=== PATIENT | female | born 1960 | race Caucasian/White ===

== ENCOUNTER 2016-08-19 18:48 | Emergency (ER) | payer SELFPAY ==
[~2016-08-19] VITALS: Ht 167.6 cm; Wt 97.0 kg
[~2016-08-19 18:48] MED LIST: ALBU1AER INH; DIAZ10TA PO; SOMA350T PO
[2016-08-19 18:55] VITALS: BP 173/88; PULSE 101; RESP 18; TEMP 98.3; O2SAT 95
[2016-08-19] MEDS ORDERED: CYCLOBENZAPRINE HCL 10 MG TAB PO ONE (21:00)
[2016-08-19] MEDS ORDERED: ACETAMINOPHEN/HYDROcodone 325 MG/5 MG TAB PO ONE (21:00)
--- NOTE | 2016-08-19 21:13 | PD ---
HPI . Low back pain Chief Complaint: Back/ Neck Pain or Injury Time Seen by Provider: 20:58 Travel History International Travel<30 days: No Contact w/Intl Traveler<30days: No Traveled to known affect area: No History of Present Illness HPI Patient presents with low back pain. She states that she has a history of chronic low back issues. She states that someone spilled something sticking in the floor except ago and that she got on all fours to mop it up. She states that she felt a pop in her back. Since that time, she has had increased pain in her low back. Pain is exacerbated by moving. She denies any other as fever , difficulty passing her bowels or urine, leg pain or weakness. She states the pain has been unrelieved by ibuprofen and Tylenol. [id number]: Generalized low back SEVERITY: Severe DURATION: 2 weeks TIMING: Continuous CONTEXT: Started after cleaning the floor on all fours MODIFYING FACTORS: Exacerbated by movement ASSOCIATED SYMPTOMS: No associated symptoms PFSH Past Medical History Asthma: Yes Autoimmune Disease: No Blood Disorders: No Anxiety: Yes Depression: Yes Cancer: No Cardiovascular Problems: No Diabetes: No Diminished Hearing: No Endocrine: No Glaucoma: No Headaches: No Herniated Disk: Yes Musculoskeletal: Yes (CHRONIC BACK/NECK PAIN AND LEFT SHOULDER PAIN) Neurologic: No Psychiatric: No Respiratory: Yes (asthma) Immunizations Current: No Migraines: Yes Pneumonia: Yes Seizures: No Influenza Vaccination: No ?: Not Menopausal: Yes : 3 Para: 1 : 2 Past Surgical History AICD: No Arteriovenous Shunt: No Insulin Pump: No Joint Replacement: No Oral Surgery: Yes (WISDOM TEETH) Pacemaker: No Other Surgery: No Social History Alcohol Use: No Tobacco Use: Yes (05/20 PPD) Substance Use: No Allergies-Medications (Allergen,Severity, Reaction): Coded Allergies: Aspirin (Verified Allergy, Severe, SWELLING, 08/19/16) Penicillin (Verified Allergy, Severe, SWELLING, 08/19/16) Codeine (Verified Allergy, Unknown, 08/19/16) Talwin (Verified Allergy, Unknown, 08/19/16) Reported Meds & Prescriptions Reported Meds & Active Scripts Active No Active Prescriptions or Reported Medications Review of Systems Except as stated in HPI: all other systems reviewed are Neg General / Constitutional: No: Fever, Chills Gastrointestinal: No: Nausea, Vomiting Genitourinary: No: Incontinence Musculoskeletal: Positive: Pain Neurologic: No: Weakness, Paresthesia Physical Exam Narrative GENERAL: Awake and alert and in no acute distress. SKIN: Warm and dry. CARDIOVASCULAR: Regular rate and rhythm. RESPIRATORY: No accessory muscle use. MUSCULOSKELETAL: No obvious deformities. No edema. Diffuse tenderness to palpation of low back. No tenderness to percussion down the spine. Range of motion is a little bit limited. NEUROLOGICAL: Awake and alert. No obvious cranial nerve deficits. Motor grossly within normal limits. Normal speech. PSYCHIATRIC: Appropriate mood and affect; insight and judgment normal. Data Data Last Documented VS Vital Signs Date Time Temp Pulse Resp B/P Pulse Ox O2 Delivery O2 Flow Rate FiO2 08/19/16 18:55 98.3 101 18 173/88 95 Orders Spine, Lumbar - Ltd (Ap & Lat) (08/19/16 20:59) Acetamin-Hydrocod 325-5 Mg ([place] 5-325 (08/19/16 21:00) Cyclobenzaprine (Flexeril) (08/19/16 21:00) [facility] Medical Decision Making Medical Screen Exam Complete: Yes Emergency Medical Condition: Yes Differential Diagnosis Differential diagnosis includes but is not limited to muscular low back pain, DDD, spinal stenosis, epidural abscess, sciatica, kidney infection or stone. Narrative Course Patient presents complaining with low back pain. She has a history of chronic low back pain. I pulled her up on [employer]. It looks like she is prescribed Soma regularly. She is also prescribed Valium periodically as well as hydrocodone periodically. She last received a prescription of hydrocodone on 07/18 for 180 tablets. She does consistently get all of her medications from a single provider. Last Impressions Lumbar Spine X-Ray 08/19/[id number] Signed Impressions: Service Date/Time: Friday, August 19, 2016 21:17 - CONCLUSION: Chronic changes. K. Sly Nunez MD The x-rays were independently viewed by me. This patient has acute exacerbation of chronic low back pain. It looks like she is already prescribed Soma, Valium and hydrocodone. I will try Flexeril and prednisone. The only medication that the patient admitted to when the nurse did her medication reconciliation was albuterol. The Soma and Valium were removed from her medication list. Diagnosis Primary Impression: Low back pain Qualified Code: M54.5 - Chronic midline low back pain without sciatica Patient Instructions: Acute Low Back Pain (DC), General Instructions, Narcotic given in the ED Med/Other Pt SpecificInfo: Prescription(s) given Scripts Prednisone (48) 10 mg tab Dose Pack 10 Mg Dspk10 Mg PO DIRECTED #1 DSPK Ref 0 Prov:Amanda Ruiz MD 08/19/16 Cyclobenzaprine (Flexeril)10 Mg Tab10 Mg PO TID #30 TAB Ref 0 Prov:Amanda Ruiz MD 08/19/16 Disposition: 01 DISCHARGE HOME Condition: Stable Amanda Ruiz MD Aug 19, 2016 21:12
--- NOTE | 2016-08-19 21:40 | RADHPO ---
EXAM DATE/TIME: 08/19/2016 21:17 [place] COMPARISON: No previous studies available for comparison. INDICATIONS : Back pain. MEDICAL HISTORY : None. SURGICAL HISTORY : None. ENCOUNTER: Initial ACUITY: 2 weeks PAIN SCORE: 8/10 LOCATION: Lumbar FINDINGS: No appreciable compression deformities, spondylolisthesis, or spondylolysis is seen. Significant deg enerative changes are seen within the disc space and facets worse at L5-S1. Chronic atherosclerotic c alcifications are seen without any definite aneurysmal dilatations for technique. There is moderate a mount of stool throughout the colon. CONCLUSION: Chronic changes. Jamila Nunez MD on August 19, 2016 at 21:38 Board Certified Radiologist. This report was verified electronically.
[2016-08-19] MEDS ORDERED: PRED10PA2 PO (22:07)
[2016-08-19] MEDS ORDERED: CYCL1TAB29 PO (22:07)
[2016-08-19 22:33] VITALS: RESP 16
== END 2016-08-19 22:34 | disposition home or self-care (01) ==
LOC: PHED 18:48 → PHEFT 22:34
DX: M54.5 Low back pain (principal); J45.909 Unspecified asthma, uncomplicated; F41.9 Anxiety disorder, unspecified; F32.9 Major depressive disorder, single episode, unspecified; F17.200 Nicotine dependence, unspecified, uncomplicated
CPT/HCPCS: 72100; 99283

== ENCOUNTER 2017-07-26 13:20 | Emergency (ER) | payer SELFPAY ==
[~2017-07-26] VITALS: Ht 167.6 cm; Wt 110.6 kg
[~2017-07-26 13:20] MED LIST changes: -ALBU1AER INH; +CYCL10TA PO; -DIAZ10TA PO; +PRED10PA2 PO; -SOMA350T PO
[2017-07-26 13:27] VITALS: BP 217/100; PULSE 98; RESP 16; TEMP 98.1; O2SAT 95
[2017-07-26] MEDS ORDERED: AZIT250T3 PO (13:50)
[2017-07-26] MEDS ORDERED: HYDR-3516 PO (13:50)
[2017-07-26] MEDS ORDERED: DICL75TA PO (13:50)
[2017-07-26] MEDS ORDERED: PRED20 PO (13:50)
--- NOTE | 2017-07-26 13:54 | PD ---
HPI Chief Complaint: ENT Complaint Time Seen by Provider: 13:41 Travel History International Travel<30 days: No Contact w/Intl Traveler<30days: No Traveled to known affect area: No History of Present Illness HPI 57-year-old female that presents to the ED for evaluation of severe right ear pain since last night. Per patient the pain has become more significant today progresses. Per patient she's never had this before. No injury or trauma. Per patient she was coming from her ear. She states having some congestion. Allergies to different medications. Has been taking of dizziness with minimal relief. Pain per patient is 8 out of 10 and Motrin or Tylenol as not touching it. Has not seen anybody for this. No other medical issues. PFSH Past Medical History Asthma: Yes Autoimmune Disease: No Blood Disorders: No Anxiety: Yes Depression: Yes Cancer: No Cardiovascular Problems: No Diabetes: No Diminished Hearing: No Endocrine: No Glaucoma: No Headaches: No Herniated Disk: Yes Musculoskeletal: Yes (CHRONIC BACK/NECK PAIN AND LEFT SHOULDER PAIN) Neurologic: No Psychiatric: No Respiratory: Yes (asthma) Immunizations Current: No Migraines: Yes Pneumonia: Yes Seizures: No Influenza Vaccination: No ?: Not Menopausal: Yes : 3 Para: 1 : 2 Past Surgical History AICD: No Arteriovenous Shunt: No Insulin Pump: No Joint Replacement: No Oral Surgery: Yes (WISDOM TEETH) Pacemaker: No Other Surgery: No Social History Alcohol Use: No Tobacco Use: Yes (05/20 PPD) Substance Use: No Allergies-Medications (Allergen,Severity, Reaction): Coded Allergies: aspirin (Unverified Allergy, Severe, SWELLING, 07/26/17) penicillin G (Unverified Allergy, Severe, SWELLING, 07/26/17) codeine (Unverified Allergy, Unknown, 07/26/17) pentazocine (Unverified Allergy, Unknown, 07/26/17) Reported Meds & Prescriptions Reported Meds & Active Scripts Active Hydrocodone-Acetamin 5-325 mg (Hydrocodone/Acetaminophen) 5 Mg-325 Mg Tablet 1 Tab PO Q6HR PRN Azithromycin 250 Mg Tab 250 Mg PO DIRECTED Take 2 tabs (500 mg) on day 1 then 1 tab daily x [address]. [address] (Diclofenac Sodium) 75 Mg Tabdr 75 Mg PO BID PRN Prednisone 20 Mg Tab 20 Mg PO BID 5 Days Review of Systems Except as stated in HPI: all other systems reviewed are Neg Physical Exam Narrative GENERAL: Well-nourished, well-developed patient in no apparent distress. SKIN: Warm and dry. HEAD: Atraumatic. Normocephalic. EYES: Pupils equal and round reactive to light and accommodation. No scleral icterus. No injection or drainage. ENT: No nasal bleeding or discharge. Mucous membranes pink and moist. TMs are red and bulging bilaterally with right worse than left with erythema noted. No mastoid tenderness. Ear canals are intact bilaterally. No lymphadenopathy. Nostril mucosa is red and moist with clear mucus noted. No sinus tenderness to palpation noted. Tonsils are not enlarged or swollen. No ulvua Deviation. Tongue is midline. NECK: Trachea midline. No JVD. No meningeal signs noted CARDIOVASCULAR: Regular rate and rhythm. RESPIRATORY: No accessory muscle use. Clear to auscultation. Breath sounds equal bilaterally. GASTROINTESTINAL: Abdomen soft, non-tender, nondistended. Hepatic and splenic margins not palpable. MUSCULOSKELETAL: Extremities without clubbing, cyanosis, or edema. No obvious deformities. NEUROLOGICAL: Awake and alert. No obvious cranial nerve deficits. Motor grossly within normal limits. Five out of 5 muscle strength in the arms and legs. Normal speech. PSYCHIATRIC: Appropriate mood and affect; insight and judgment normal. Data Data Last Documented VS Vital Signs Date Time Temp Pulse Resp B/P (MAP) Pulse Ox O2 Delivery O2 Flow Rate FiO2 07/26/17 13:27 98.1 98 16 217/100 (139) 95 Orders Orders Acetamin-Hydrocod 325-5 Mg ([place] 5-325 (07/26/17 14:00) Ed Discharge Order (07/26/17 13:51) [facility] Medical Decision Making Medical Screen Exam Complete: Yes Emergency Medical Condition: Yes Medical Record Reviewed: Yes Differential Diagnosis Otitis media versus otitis externa versus sinusitis Narrative Course 57-year-old female that presents to the ED for evaluation of right ear pain. Patient was properly examined and was found to have signs and symptoms consistent appears to otitis media. Patient will be given prescriptions for azithromycin, prednisone, diclofenac Sodium and Lortab for pain. Told to continue taking OTC medicines as needed. Follow with PCP. See ED worsening symptoms. Symptoms will likely take couple days to get better. Diagnosis Primary Impression: Otitis media Qualified Codes: H66.001 - Acute suppurative otitis media without spontaneous rupture of ear drum, right ear Patient Instructions: General Instructions, Narcotic given in the ED Additional Instructions: Motrin and Tylenol for pain and fever. You can use [id number] antihistamine as well as well as Mucinex as needed for runny nose and congestion. Drink plenty of fluids. Follow-up with PCP. See ED for worsening symptoms. Med/Other Pt SpecificInfo: Prescription(s) given Scripts Hydrocodone/Acetaminophen (Hydrocodone-Acetamin 5-325 mg) 5 Mg-325 Mg Tablet 1 TAB PO Q6HR Y for PAIN SCALE 1 TO 10, #10 Prov: Levon Kraft MD 07/26/17 Azithromycin (Azithromycin) 250 Mg Tab 250 MG PO DIRECTED for Infection, #6 TAB 0 Refills Take 2 tabs (500 mg) on day 1 then 1 tab daily x 4 days. Prov: Levon Kraft MD 07/26/[address] (Diclofenac Sodium DR) 75 Mg Tabdr 75 MG PO BID Y for PAIN SCALE 1 TO 10, #20 TAB 0 Refills Prov: Levon Kraft MD 07/26/17 Prednisone (Prednisone) 20 Mg Tab 20 MG PO BID for 5 Days, #10 TAB 0 Refills Prov: Levon Kraft MD 07/26/17 Disposition: 01 DISCHARGE HOME Condition: Stable Tunde Anglin Jul 26, 2017 13:54
[2017-07-26] MEDS ORDERED: ACETAMINOPHEN/HYDROcodone 325 MG/5 MG TAB PO ONE (14:00)
[2017-07-26 14:27] VITALS: BP 198/82
== END 2017-07-26 14:35 | disposition home or self-care (01) ==
LOC: PHEFT 13:20
DX: H66.001 Acute suppurative otitis media without spontaneous rupture of ear drum, right ear (principal); F17.200 Nicotine dependence, unspecified, uncomplicated; Z87.09 Personal history of other diseases of the respiratory system; Z86.59 Personal history of other mental and behavioral disorders; Z87.39 Personal history of other diseases of the musculoskeletal system and connective tissue; Z86.69 Personal history of other diseases of the nervous system and sense organs
CPT/HCPCS: 99283